=== PATIENT | male | born 1995 | race Caucasian/White ===

== ENCOUNTER 2016-08-21 19:54 | Emergency (ER) | payer OTHER ==
[2016-08-21 20:33] VITALS: BP 140/75; PULSE 86; RESP 16; TEMP 98.5
--- NOTE | 2016-08-21 20:42 | ED ---
ENT HPI - General Chief complaint: ENT Stated complaint: eye pain Time Seen by Provider: 08/21/16 20:39 Source: patient, RN notes reviewed Mode of arrival: ambulatory Limitations: no limitations - History of Present Illness Initial comments: 21-year-old male presents emergency Department with chief complaint of right eye irritation, drainage. Patient states started yesterday worse today. Patient states she's been rubbing his eye all day. Patient states there is a large amount of purulent drainage. Denies any blurred vision. Denies any fevers or chills. Patient denies sinus congestion, sore throat, headache or dizziness. - Related Data Previous Rx's Medication Instructions Recorded Tobramycin [Tobrex 0.3% Ophth Soln] 1 drop RIGHT EYE Q4HR #5 ml 08/21/16 Allergies Allergy/AdvReac Type Severity Reaction Status Date / Time No Known Allergies Allergy Verified 08/21/16 20:39 Review of Systems ROS Statement: Those systems with pertinent positive or pertinent negative responses have been documented in the HPI. ROS Other: All systems not noted in ROS Statement are negative. Past Medical History Past Medical History: No Reported History History of Any Multi-Drug Resistant Organisms: None Reported Past Surgical History: Appendectomy Past Psychological History: No Psychological Hx Reported Smoking Status: Current every day smoker Past Alcohol Use History: Occasional Past Drug Use History: Marijuana General Exam Limitations: no limitations General appearance: alert, in no apparent distress Head exam: Present: atraumatic, normocephalic, normal inspection Eye exam: Present: PERRL, EOMI, conjunctival injection (Moderate right). Absent : normal appearance (Large amount of purulent drainage from the right eye), scleral icterus, periorbital swelling, periorbital tenderness ENT exam: Present: normal exam, normal oropharynx, mucous membranes moist, TM's normal bilaterally, normal external ear exam Neck exam: Present: normal inspection, full ROM. Absent: tenderness, meningismus, lymphadenopathy Respiratory exam: Present: normal lung sounds bilaterally. Absent: respiratory distress, wheezes, rales, rhonchi, stridor Cardiovascular Exam: Present: regular rate, normal rhythm, normal heart sounds. Absent: systolic murmur, diastolic murmur, rubs, gallop, clicks Course Vital Signs 08/21/16 20:30 Temperature 98.5 F Pulse Rate 86 Respiratory 16 Rate Blood Pressure 140/75 O2 Sat by Pulse 100 Oximetry Medical Decision Making - Medical Decision Making 21-year-old male present emergency department for right eye drainage. Patient has bacterial conjunctivitis. Patient was started on Tobrex eyedrops. Return parameters were discussed. We did discuss washing the eye with baby shampoo and keeping the area clean. Disposition Clinical Impression: Bacterial conjunctivitis of right eye Disposition: HOME SELF-CARE Condition: Stable Instructions: Conjunctivitis (ED) Additional Instructions: Please return to the Emergency Department if symptoms worsen or any other concerns. Prescriptions: Tobramycin [Tobrex 0.3% Ophth Soln] 1 drop RIGHT EYE Q4HR #5 ml Referrals: None,Stated [Primary Care Provider] - 1-2 days Time of Disposition: 20:42
== END 2016-08-21 21:07 | disposition home or self-care (01) ==
LOC: EC 19:54
DX: H10.89 Other conjunctivitis (principal); F17.200 Nicotine dependence, unspecified, uncomplicated
CPT/HCPCS: 99283

== ENCOUNTER 2017-11-28 18:06 | Emergency (ER) | payer OTHER ==
--- NOTE | 2017-11-28 19:08 | ED ---
Nausea/Vomiting/Diarrhea HPI - General Chief complaint: Nausea/Vomiting/Diarrhea Stated complaint: Vomiting Time Seen by Provider: 11/28/17 18:33 Source: patient, RN notes reviewed, old records reviewed Mode of arrival: ambulatory Limitations: no limitations - History of Present Illness Initial comments: 22-year-old male presents emergency department today with chief complaint of vomiting episodes yesterday as well as a slight cough. He reports that his girlfriend's son has had similar complaints and is now feeling better. Patient reports that his girlfriend as well as the girlfriend's sons father was also sick with similar complaints. He reports no abdominal pain. No bloody emesis. He states that he did have a runny nose and sore throat. He states he has not taken any [id number] medication. He does relate that he needs a work note today. - Related Data Previous Rx's Medication Instructions Recorded Tobramycin [Tobrex 0.3% Ophth Soln] 1 drop RIGHT EYE Q4HR #5 ml 08/21/16 Ondansetron Odt [Zofran Odt] 4 mg PO Q8HR PRN #12 tab 11/28/17 methylPREDNISolone Dose Pack 4 mg PO DIRECTED #1 pack 11/28/17 [Medrol Dose Pack] Allergies Allergy/AdvReac Type Severity Reaction Status Date / Time No Known Allergies Allergy Verified 11/28/17 18:23 Review of Systems ROS Statement: Those systems with pertinent positive or pertinent negative responses have been documented in the HPI. ROS Other: All systems not noted in ROS Statement are negative. Past Medical History Past Medical History: No Reported History History of Any Multi-Drug Resistant Organisms: None Reported Past Surgical History: Appendectomy Past Psychological History: No Psychological Hx Reported Smoking Status: Current every day smoker Past Alcohol Use History: Occasional Past Drug Use History: Marijuana General Exam - General Exam Comments Initial Comments: Well-appearing 22-year-old male. No significant distress. Limitations: no limitations General appearance: alert, in no apparent distress Head exam: Present: atraumatic, normocephalic, normal inspection Eye exam: Present: normal appearance, PERRL, EOMI. Absent: scleral icterus, conjunctival injection, periorbital swelling ENT exam: Present: normal exam, mucous membranes moist Neck exam: Present: normal inspection. Absent: tenderness, meningismus, lymphadenopathy Respiratory exam: Present: normal lung sounds bilaterally. Absent: respiratory distress, wheezes, rales, rhonchi, stridor Cardiovascular Exam: Present: regular rate, normal rhythm, normal heart sounds. Absent: systolic murmur, diastolic murmur, rubs, gallop, clicks GI/Abdominal exam: Present: soft, normal bowel sounds. Absent: distended, tenderness, guarding, rebound, rigid Extremities exam: Present: normal inspection, full ROM, normal capillary refill. Absent: tenderness, pedal edema, joint swelling, calf tenderness Back exam: Present: normal inspection Neurological exam: Present: alert, oriented X3, CN II-XII intact Psychiatric exam: Present: normal affect, normal mood Skin exam: Present: warm, dry, intact, normal color. Absent: rash Course Vital Signs 11/28/17 11/28/17 18:21 19:37 Temperature 98.2 F 98.3 F Pulse Rate 96 77 Respiratory 18 17 Rate Blood Pressure 132/79 126/82 O2 Sat by Pulse 100 97 Oximetry Medical Decision Making - Medical Decision Making [id number] male presenting today with complaint of nausea and vomiting. Patient has a slight cough as well complaint of sore throat respiratory congestion. Likely viral syndrome. Is no abdominal tenderness at this time appears nontoxic. Vital signs are stable no fever. Lungs are clear to auscultation no significant wheezing at this time. He is a smoker. He discussed the importance of smoking cessation. Patient does have a slight cough. At this time we'll treat the Patient for likely viral-like syndrome with bronchitis or respiratory infection give Patient a short course of Medrol Dosepak as well as nausea medicine. He does request a work note. Discussed return parameters. All questions answered and return parameters were discussed. Disposition Clinical Impression: Vomiting, URI with cough and congestion Disposition: HOME SELF-CARE Condition: Good Instructions: Acute Nausea and Vomiting (ED) Additional Instructions: Patient is advised follow-up with primary care provider. Return to emergency department if any alarming signs or symptoms occur. Prescriptions: methylPREDNISolone Dose Pack [Medrol Dose Pack] 4 mg PO DIRECTED #1 pack Ondansetron Odt [Zofran Odt] 4 mg PO Q8HR PRN #12 tab PRN Reason: Nausea Is patient prescribed a controlled substance at d/c from ED?: No Referrals: None,Stated [Primary Care Provider] - 1-2 days Mayra Whitfield MD [REFERRING] - 1-2 days Time of Disposition: 19:17
--- NOTE | 2017-11-28 19:15 | XR ---
EXAMINATION TYPE: XR chest 2V DATE OF EXAM: 11/28/2017 COMPARISON: NONE HISTORY: Nausea and vomiting TECHNIQUE: Frontal and lateral views of the chest are obtained. FINDINGS: Heart and mediastinum are normal. Lungs are clear. Diaphragm is normal. Bony thorax is int act. IMPRESSION: Normal chest
[2017-11-28 19:39] VITALS: BP 126/82; PULSE 77; RESP 17; TEMP 98.3
== END 2017-11-28 19:37 | disposition home or self-care (01) ==
LOC: EC 18:06
DX: J06.9 Acute upper respiratory infection, unspecified (principal); R11.2 Nausea with vomiting, unspecified; F17.200 Nicotine dependence, unspecified, uncomplicated; Z79.51 Long term (current) use of inhaled steroids
CPT/HCPCS: 71046; 99284

== ENCOUNTER 2018-03-11 21:33 | Emergency (ER) | payer OTHER ==
[2018-03-11 21:51] VITALS: BP 151/70; PULSE 88; RESP 16; TEMP 97.9
--- NOTE | 2018-03-11 22:40 | ED ---
Psych HPI - General Chief Complaint: Psychiatric Symptoms Stated Complaint: Mental health Time Seen by Provider: 03/11/18 21:56 Source: patient Mode of arrival: ambulatory - History of Present Illness Initial Comments: This patient is a 23-year-old man brought here to have psychiatric evaluation related to suicidal ideation. The patient states that he had broken up with his girlfriend recently. Tonight he had some thoughts that he might want to step in front car. Patient states that he is subsequently had a chance to talk things down any does feel better now. Denies history of previous depression or suicidal ideation. No previous history of suicide attempt. MD Complaint: suicidal ideation -: hour(s) Associated Psychiatric Symptoms: suicidal ideation History of same: No Quality: resolved prior to arrival Worsens With: none Context: significant life stressor Associated Symptoms: denies other symptoms - Related Data Home Medications Medication Instructions Recorded Confirmed No Known Home Medications 03/11/18 03/11/18 Allergies Allergy/AdvReac Type Severity Reaction Status Date / Time No Known Allergies Allergy Verified 03/11/18 22:00 Review of Systems ROS Statement: Those systems with pertinent positive or pertinent negative responses have been documented in the HPI. ROS Other: All systems not noted in ROS Statement are negative. Constitutional: Denies: fever, chills Respiratory: Denies: cough, dyspnea Cardiovascular: Denies: chest pain Gastrointestinal: Denies: abdominal pain, vomiting, diarrhea Musculoskeletal: Denies: back pain Neurological: Denies: headache Psychiatric: Reports: suicidal thoughts. Denies: depression, auditory hallucinations, visual hallucinations, homicidal thoughts Past Medical History Past Medical History: No Reported History History of Any Multi-Drug Resistant Organisms: None Reported Past Surgical History: Appendectomy Past Psychological History: No Psychological Hx Reported Smoking Status: Current every day smoker Past Alcohol Use History: Occasional Past Drug Use History: Marijuana General Exam Limitations: no limitations General appearance: alert, in no apparent distress Head exam: Present: atraumatic, normocephalic Eye exam: Present: normal appearance ENT exam: Present: normal oropharynx Respiratory exam: Present: normal lung sounds bilaterally. Absent: respiratory distress, wheezes, rales, rhonchi, stridor Cardiovascular Exam: Present: regular rate, normal rhythm, normal heart sounds. Absent: systolic murmur, diastolic murmur, rubs, gallop GI/Abdominal exam: Present: soft. Absent: distended, tenderness, guarding, rebound Extremities exam: Present: normal inspection Back exam: Present: normal inspection Neurological exam: Present: alert Psychiatric exam: Present: suicidal ideation (Resolved now). Absent: depressed , agitated, anxious, flat affect, manic, homicidal ideation Skin exam: Present: warm, dry, intact, normal color. Absent: rash Course Vital Signs 03/11/18 21:47 Temperature 97.9 F Pulse Rate 88 Respiratory 16 Rate Blood Pressure 151/70 O2 Sat by Pulse 100 Oximetry Disposition Clinical Impression: Adjustment reaction Disposition: HOME SELF-CARE Condition: Good Instructions: Mood Disorders (ED) Is patient prescribed a controlled substance at d/c from ED?: No Referrals: None,Stated [Primary Care Provider] - 1-2 days
== END 2018-03-12 00:37 | disposition home or self-care (01) ==
LOC: EC 21:33
DX: F43.20 Adjustment disorder, unspecified (principal); F17.200 Nicotine dependence, unspecified, uncomplicated; Z73.3 Stress, not elsewhere classified
CPT/HCPCS: 82075; 99285